=== PATIENT | female | born 1955 | race Caucasian/White ===

== ENCOUNTER → 2020-12-07 | Day surgery (SDC) | payer MEDICARE ==
[~2020-12-07] VITALS: Ht 162.6 cm; Wt 72.6 kg
[~2020-12-07] MED LIST: ASPIRIN EC81 M1 PO; DESYREL50 MG PO; FLUOXETINE HCL40 MG PO; GABAPENTIN400 MG PO; LEVOTHYROXINE75 MC1 PO; LIPITOR40 MG PO; LISINOPRIL-HCT1 EACH PO; OMEPRAZOLE40 MG PO
== END | disposition home or self-care (01) ==
LOC: FAS 13:25
DX: H26.492 Other secondary cataract, left eye (principal); Z79.82 Long term (current) use of aspirin; Z79.899 Other long term (current) drug therapy; Z88.0 Allergy status to penicillin; Z88.1 Allergy status to other antibiotic agents

== ENCOUNTER 2021-06-15 14:48 | Emergency (ER) | payer MEDICARE ==
[2021-06-15 16:54] LABS: BASOPHIL 0.4 % (0-2); EOSINOPHIL 1.7 % (0-7); HCT 40.6 % (37.0-47.0); HGB 12.7 g/dl (12.5-16.0); LYMPHOCYTE 11.2 % (15-48); MCH 30.2 pg (25.0-31.0); MCHC 31.3 g/dL (32.0-36.0); MCV 96.7 fL (78.0-100.0); MONOCYTE 3.8 % (0-12); MPV 10.2 fL (6.0-9.5); NEUTROPHIL 82.6 % (41-80); NRBC 0; PLT 274 K/uL (150-400); RDW 12.7 % (11.5-14.0); WBC 10.2 K/uL (4.0-10.5)
[2021-06-15 17:10] LABS: ALBUMIN 3.6 g/dL (3.4-5.0); ALKALINE PHOSHATASE 102 U/L (46-116); ALT 20 U/L (14-59); AST 13 U/L (15-37); BILIRUBIN - TOTAL 0.3 mg/dL (0.2-1.0); BUN 8 mg/dL (7-18); BUN/CREAT RATIO (CALC) 8.6 RATIO; CHLORIDE 97 mmol/L (98-107); CO2 (BICARBONATE) 31 mmol/L (21-32); CREATININE 0.93 mg/dL (0.51-0.95); GLOBULIN (CALCULATION) 4.4 g/dL; GLUCOSE 156 mg/dL (74-106); POTASSIUM 3.6 mmol/L (3.5-5.1)
[2021-06-15 19:49] LABS: BILIRUBIN NEGATIVE (NEGATIVE); BLOOD TRACE-INTACT Ery/uL (NEGATIVE); CLARITY CLEAR (CLEAR); COLOR YELLOW (YELLOW); GLUCOSE (U) NORMAL (NORMAL); LEUKOCYTES 2+ Leu/uL (NEGATIVE); NITRITE NEGATIVE (NEGATIVE); PROTEIN NEGATIVE (NEGATIVE); UROBILINOGEN 0.2 mg/dL (0.2-1.0); pH 6.5 (5.0-9.0)
[2021-06-15 19:59] LABS: BACTERIA 1+; URINARY RBC RARE
[2021-06-15 20:00] LABS: RENAL EPITHELIAL CELLS RARE
[2021-06-15] MEDS ORDERED: CIPRO500 MG PO (20:21)
== END 2021-06-15 20:45 | disposition home or self-care (01) ==
LOC: FER 14:48
PROVIDERS: Emergency Medicine
DX: N39.0 Urinary tract infection, site not specified (principal); R53.1 Weakness; I10 Essential (primary) hypertension; Z86.73 Personal history of transient ischemic attack (TIA), and cerebral infarction without residual deficits; Z88.0 Allergy status to penicillin; Z88.1 Allergy status to other antibiotic agents; Z20.822 Contact with and (suspected) exposure to COVID-19
CPT/HCPCS: 36415; 70450; 71045; 80053; 81001; 84484; 85025; 87088; 93005; U0002